=== PATIENT | male | born 1985 | race Caucasian/White ===

== ENCOUNTER 2025-02-22 15:20 | Outpatient (REF) | payer OTHER, SELFPAY ==
--- OUTSIDE RECORDS SUMMARY | 2025-02-22 17:28 | XMS_ITS | Data Portability ---
Author Organization [place] [facility] [place] Address [address] [place] [address] Care Team Providers Care Painting Contractor Name Role Phone CARLOS JACINTO Primary Care Provider CARLOS JACINTO Referring Provider [phone] Assessment Encounter Date Assessment Date Assessment LastModified by Organization Details LastModified Time 01/13/2025 01/13/2025 HPI: 39-year-old [id number] t man presenting with several year history of worsening right lateral elbow pain worsening over the past few months. 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 He had a similar issue back in 2012 but it recovered and has since returned. Continue ibuprofen that provides some relief rates pain 4 out of 10 he has pain with lifting gripping extending his elbow. Review of systems as noted in the HPI. Physical Exam: There is full active motion of the shoulders, elbows, and wrists bilaterally. The RIGHT elbow has tenderness to palpation over the lateral epicondyle. Pain over the mobile wad. Pain with resisted wrist extension with passive wrist flexion with the elbow in the extended position. No pain over the medial epicondyle, olecranon, radial head, or the DRUJ. No ulnar nerve subluxation. No ulnar nerve symptoms. No elbow instability. Neurovascular exam is intact. Skin is normal. IMPRESSION: with RIGHT lateral epicondylitis. PLAN: I discussed the treatment options with the patient includin. Living with the symptoms. 2. Continued non-operative management. 3. Surgical intervention. I had a nice discussion with the patient today. I reviewed the diagnosis and prognosis of lateral epicondylitis (AKA Tennis Elbow). I explained that the first-line treatment of lateral epicondylitis is appropriate physiotherapy including epicondylar muscle strengthening exercises, mobilization, stretching, and deep friction massage. I provided the patient with a handout demonstrate these exercises. I would ask that these exercises are done at least five times per day. I am recommending prescription strength NSAID therapy to decrease the pain and inflammation associated with this condition. A prescription was sent today for Meloxicam 15 mg daily for 30 days with 2 refills. If further anti-inflammatory medication is desired, I encouraged the patient to discuss this with their primary care provider. The patient was educated today on proper use of pain medications, including alternating anti inflammatories with antipyretics for synergistic pain relief as needed, in addition to medication limits and taking medications with food to avoid GI upset. the patient confirmed that they will discontinue taking the medication immediately if they experience any side effect and will inform the office as well. I am also recommending a prescription for outpatient physical or occupational therapy for this condition. This prescription was provided today. Lastly, I recommend that the patient trials a counterforce brace (bandit brace) for their elbow. Patient was prescribed a bandit elbow for the above diagnosis. The patient has weakness and/or instability of their elbow which requires stabilization from this semi-rigid/rigid orthosis to improve their function. If first-line treatment with physiotherapy, NSAIDs, and bracing fails, a PRP injection can be considered but does incur an out of pocket expense to the patient. I explained the process by which this is done. Current evidence and my personal experience dictates that corticosteroid injections should not be used for this diagnosis as significant rebound pain and worse 1 year outcomes are a known problem with corticosteroids for lateral epicondylitis. I also explained that the natural history studies show that most cases of lateral epicondylitis resolve within 1 to 2 years if left alone entirely. In my practice, I will only offer surgery if no improvement or if symptoms worsen after 6 months to 1 year of appropriate and dedicated nonoperative treatment course exhausting therapy, tennis elbow counterforce bracing, NSAIDs, and PRP injections. I did also explain that there is some uncertainty regarding the efficacy of the surgical procedures and that there are significant risks that must be considered with any surgery. The patient demonstrated excellent understanding of this and stated that they were in agreement with the treatment plan as outlined above. I also provided them with a packet of written information on the diagnosis, prognosis, and management of this pathology. The patient may return to see me in clinic in 3 months for repeat clinical evaluation. At the conclusion of the office visit, the patient verbally acknowledged that I answered all questions satisfactorily. Thank you for this consultation [email or web address] Not available 01/13/2025 11:34:34 Plan of Treatment Reminders Order Date Submit Date Provider Last Modified By Organization Details Last Modified Time Details Appointments FOLLOW UP 2025 09:00A M Tony Sauceda MD Not available Not available Not available Lab None recorded. Referral physical therapist referral - medial & lateral epicondyl itis 2-3x per week for 12 weeks epicondyl ar muscle strengthe delfino exercises , mobilizat ion, stretchin g, and deep friction massage. Modalitie s as indicated PHASE I: - Use modalitie s as needed to reduce pain, swelling, and inflammat ion (i.e., ice, heat /cold contrast, - phonophor esis, electrica l stimulati on, etc.). - Use a brace (i.e., cock up splint, counterfo rce brace) as needed. - Wrist flexion and extension stretches MEDIAL EPICONDYL ITIS - Strengthe delfino exercises : - Wrist extension - Supinatio n - Biceps curls - Triceps extension s - Radial deviation - Putty squeeze (wrist in neutral) NOTE: Avoid strengthe delfino the flexor mass muscle group during this initial phase to allow for healing at the medial epicondyl e. LATERAL EPICONDYL ITIS - Strengthe delfino exercises : - Wrist flexion - Pronation - Biceps curls - Triceps extension s - Ulnar deviation - Putty squeeze (in extension ) NOTE: Avoid strengthe delfino the extensor mass muscle group during this initial phase to allow for healing at the lateral epicondyl e. - Apply ice after each session PHASE II: - Continue use of modalitie s as needed. - Continue wrist flexion and extension stretchin g exercises . - Apply ice after each session. MEDIAL EPICONDYL ITIS - Add the following strengthe delfino exercises : - Putty finger flexion - Wrist flexion - Upper body ergometer LATERAL EPICONDYL ITIS - Add the following strengthe delfino exercises : - Putty finger extension - Wrist extension - Upper body ergometer PHASE III: - Progress to increased resistanc e during putty squeezes, - Add upper extremity strengthe delfino exercises as tolerated . - Add isokineti c training exercises as needed. - Progress with upper body ergometer as tolerated . - Gradually add sport or work related functiona l drills to prepare for return to former sports or activity. - Apply ice as needed. 2024 025 [email or web address] Not available 01/13/2025 11:40:10 Procedures None recorded. Surgeries None recorded. Imaging XR, elbow, 3 or more view 2024 025 [email or web address] [facility], [address], [place], [address], 01/16/2025 11:20:02 Medication Orders meloxicam 15 mg tablet 2024 025 [id number], [address], [place], [id number], 01/13/2025 11:34:42 Patient TargetsNo targets recorded. Patient Instructions Encounter Date Encounter Id Patient Instructions Last Modified By Organization Details Last Modified Time 01/13/2025 [id number] tennis elbow: exercises Not available 01/13/2025 11:34:35 Imaging: RIGHT elbow three view radiographs including AP, oblique, and lateral views were ordered by me, obtained today, reviewed with the patient, and independently interpreted by me as demonstrating a concentrically reduced ulnohumeral joint and radiocapitellar joint without any evidence of fracture, dislocation, arthritis, calcification, joint effusion, or other acute osseous abnormalities. Not available 01/13/2025 11:33:46 Reason for Referral Physical Therapist Referral for Lateral epicondylitis medial & lateral epicondylitis2-3x per week for 12 weeksepicondylar muscle strengthening exercises, mobilization, stretching, and deep friction massage.Modalities as indicatedPHASE I: - Use modalities as needed to reduce pain, swelling, and inflammation (i.e., ice, heat /cold contrast, - phonophoresis, electrical stimulation, etc.). - Use a brace (i.e., cock up splint, counterforce brace) as needed. - Wrist flexion and extension stretches MEDIAL EPICONDYLITIS - Strengthening exercises: - Wrist extension- Supination - Biceps curls- Triceps extensions - Radial deviation- Putty squeeze (wrist in neutral) NOTE: Avoid strengthening the flexor mass muscle group during this initial phase to allow for healing at the medial epicondyle. LATERAL EPICONDYLITIS - Strengthening exercises: - Wrist flexion- Pronation - Biceps curls- Triceps extensions - Ulnar deviation- Putty squeeze (in extension) NOTE: Avoid strengthening the extensor mass muscle group during this initial phase to allow for healing at the lateral epicondyle. - Apply ice after each session PHASE II: - Continue use of modalities as needed. - Continue wrist flexion and extension stretching exercises. - Apply ice after each session. MEDIAL EPICONDYLITIS - Add the following strengthening exercises: - Putty finger flexion - Wrist flexion - Upper body ergometer LATERAL EPICONDYLITIS - Add the following strengthening exercises: - Putty finger extension - Wrist extension - Upper body ergometer PHASE III: - Progress to increased resistance during putty squeezes, - Add upper extremity strengthening exercises as tolerated. - Add isokinetic training exercises as needed. - Progress with upper body ergometer as tolerated. - Gradually add sport or work related functional drills to prepare for return to former sports or activity. - Apply ice as needed. Referring Physician: Joe Sauceda, Orthopedic Surgery, Encounter Date: 01/13/2025 Problems Name Problem SNOMED Code Status Onset Date Resolution Date Notes Provider Name and Address Organization Details Recorded Time Lateral epicondylitis Active 2024 Joe Sauceda MD [address], [place], [address] , [place] [facility] 11:33:34 Lateral epicondylitis Active 2024 Joe Sauceda MD [address], [place], [address] , [place] [facility] 11:33:40 Essential hypertension 18926166 Active 2024 Kaylie dela cruz, [place] - [facility] 11:40:09 Problem Notes None recorded. Medical Equipment None Reported. Allergies Allergen ID Allergen Name Allergen Category Reaction Reaction Severity Criticality Documentation Date Start Date Code Code System Note Provider Name and Address Organization Details Recorded Time 189878 Augmentin medicatio n hallucina tions Not available Not available 01/13/2025 95063 2 RxNorm Not Available selvin - External Data Service - prod 10:48:58 Medications Name Sig Start Date Stop Date Status Note LastModified by Organization Details LastModified Time meloxicam 15 mg tablet Take 1 tablet every day by oral route. 2024 active Not Available Not Available Not Avai lable amlodipine 5 mg tablet TAKE 1 TABLET BY MOUTH EVERY DAY active Not Available Not Available No t Available amoxicillin 875 mg tablet TAKE 1 TABLET TWICE A DAY UNTIL FINISHED 01/13 completed Not Available Not Available Not Available amlodipine 10 mg tablet TAKE 1 TABLET BY MOUTH EVERY DAY active Not Available Not Available No t Available lisinopril 10 mg tablet TAKE 1 TABLET BY MOUTH EVERY DAY active Not Available Not Available No t Available escitalopra m 10 mg tablet TAKE 1 TABLET BY MOUTH EVERY DAY active Not Available Not Available No t Available Vitals Date Recorded Body height Body mass index (BMI) Body weight Provider Name and Address Organization Details Last Updated DateTime 01/13/2025 172.72 cm 35.7 kg/m2 581317.21 g Kaylie Chávez [place] [facility] 01/13/2025 11:39:43 Social History Question Answer Notes LastModified by Riiid Details LastModified Time Tobacco Smoking Status Former Smoker Kaylie Kyler dela cruz, [place] - [facility] 01/13/2025 11:43:18 Are You Currently In School? No [email or web address] Information not available 01/13/2025 Sex: Unknown Functional Status Question Answer Note LastModified by Riiid Details LastModified Time Do you use any illicit or recreational drugs? No [email or web address] Information not available 01/13/2025 Do you or have you ever used any other forms of tobacco or nicotine? Yes Information not available 01/13/2025 What is your level of alcohol consumption? Occasional [email or web address] Information not available 01/13/2025 Do you or have you ever used smokeless tobacco? Currently chews tobacco [email or web address] Information not available 01/13/2025 Are you currently employed? Yes Information not available 01/13/2025 Do you or have you ever used e-cigarettes or vape? Never used electronic cigarettes [email or web address] Information not available 01/13/2025 Mental Status None recorded. Family History Nothing Reported. Medical History No medical history recorded. Past Encounters Encounter ID Performer Location Encounter Start Date Encounter Closed Date Diagnosis/Indication Diagnosis SNOMED-CT Code Diagnosis ICD10 Code Diagnosis IMO Codes Diagnosis Note [id number] Joe Sauceda MD [facility] [address] [place] [address] 01/13/2025 10:45:34 01/13/2025 11:40:09 Pain of elbow region 02331947 M25.521 052005 Lateral epicondylitis 20 2867149 M77.10 [id number] Health Concerns Section Related Observation LastModified by Organization Detai ls LastModified Time None Recorded Concern Status LastModified by Organization Details LastModified Time None Recorded Advance Directives Directive None Recorded Payers Insurance Date Sequence Insurance Name Policy Number Policy Romeo Covered Member ID Romeo Member ID Guarantor Name 01/15/2025 1 [facility] [place] Hari Loyd [id number] Hari Loyd
--- OUTSIDE RECORDS SUMMARY | 2025-02-22 17:28 | XMS_ITS | Continuity of Care Document ---
Author Organization [place] - [facility] Address [address] [place] [address] Assessment Encounter Date Assessment Date Assessment LastModified by Organization Details LastModified Time 02/22/2025 02/22/2025 [address] [place] [address] (CLINICAL TRIAL HEAD) MDM MODERATE MUST MEET 2 OUT OF 3 ELEMENTS: PROBLEMS, DATA OR RISK ELEMENT 1: PROBLEMS ADDRESSED 1 OR MORE CHRONIC ILLNESS WITH EXACERBATION OR 2 OR MORE STABLE CHRONIC ILLNESSES OR 1 UNDIAGNOSED NEW PROBLEM OR 1 ACUTE ILLNESS W/SYMPTOMS OR 1 ACUTE COMPLICATED INJURY ELEMENT 2: DATA MUST MEET 1 OF 3 CATEGORIES CATEGORY 1: REVIEW OF PRIOR EXTERNAL NOTES, REVIEW OF RESULTS, ORDERING OF EACH TEST, ASSESSMENT REQUIRING INDEPENDENT HISTORIAN OR CATEGORY 2: INDEPENDENT INTERPRETATION OF TESTS BY ANOTHER PHYSICIAN OR SPECIALIST OR CATEGORY 3: DISCUSSION OF MGT OR TEST INTERPRETATION W/EXTERNAL PHYSICIAN OR SPECIALIST ELEMENT 3: RISK RISK OF COMPLICATIONS AND/OR MORBIDITY OR MORTALITY OF PATIENT MANAGEMENT PROVIDER MUST THOROUGHLY DOCUMENT EACH ELEMENT THAT IS COVERED Not available 02/22/2025 15:16:02 Plan of Treatment Reminders Order Date Submit Date Provider Last Modified By Organization Details Last Modified Time Details Appointments FOLLOW UP 15 2024 02:30P M DR JACINTO Not available Not available Not available FOLLOW UP 15 [address] JACINTO Not available Not available Not available Lab testoste julio, total, serum 2024 025 [facility], [address] [place] [address], [place], [address], 02/22/2025 15:19:44 Referral None recorded . Procedures None recorded . Surgeries None recorded . Imaging None recorded . Medication Orders None recorded . Patient TargetsNo targets recorded. Patient InstructionsNo instructions recorded. Reason for Referral None Reported. Problems Name Problem SNOMED Code Status Onset Date Resolution Date Notes Provider Name and Address Organization Details Recorded Time Essential hypertens ion 03085605 Active 2024 Jimmie Jacinto DO [address] [place] [address], [address], [facility] 5 15:50:25 Habitual snoring 381008359 Active 2024 Jimmie Jacinto DO [address] [place] [address], [address], [facility] 5 15:59:58 Lumbar sprain 174010296 Active 2024 Jimmie Jacinto DO [address] [place] [address], [address], [facility] 5 09:43:29 Obstructi ve sleep apnea syndrome 10430552 Active 2024 Jimmie Jacinto DO [address] [place] [address], [address], [facility] 5 09:50:32 Pain in thoracic spine 307227688 Active 2024 EDY AQUINO [address] [place] [address], [address], [facility] 5 09:31:01 Chronic low back pain 402980230 Active 2024 Jimmie Jacinto DO [address] [place] [address], [address], [facility] 5 10:16:32 Right lateral elbow tendinopa thy 562553893419 107 Active 2024 Jimmie Jacinto DO [address] [place] [address], [address], [facility] 5 10:20:59 Spinal stenosis of thoracic region 98644487 Active 2024 Jimmie Jacinto DO [address] [place] [address], [address], [facility] 22:37:18 Degenerat kali thoracic spinal stenosis 486746035 Active 2024 Jimmie Jacinto, DO [address] [place], [address], [facility] 22:37:23 Anxiety 58715721 Active 2024 Jimmie Jacinto, DO [address] [place], [address], [facility] 14:19:09 Fatigue 57977181 Active 2024 Jimmie Jacinto, DO [address] [place], [address], [facility] 15:17:21 Problem Notes None recorded. Medical Equipment None Reported. Allergies Allergen ID Allergen Name Allergen Category Reaction Reaction Severity Criticality Documentation Date Start Date Code Code System Note Provider Name and Address Organization Details Recorded Time Product containin g penicilli n (product) medicatio n Not available Not available Not available 02/22/20252004 63955 8001 SNOMED type of react ion is unkno wn Not Available selvin - External Data Service - prod 03:09:14 8925 Augmentin medicatio n hallucina tions Not available Not available 06/05/2024 61161 2 RxNorm Jimmie Jacinto, DO [address] [place], [address], [facility] 15:19:13 Medications Name Sig Start Date Stop Date Status Note LastModified by Organization Details LastModified Time meloxicam 15 mg tablet TAKE 1 TABLET BY MOUTH EVERY DAY 02/22 completed Not Available Not Available Not Available amlodipine 5 mg tablet TAKE 1 TABLET BY MOUTH EVERY DAY 12/28 completed Not Available Not Available Not Available amoxicillin 875 mg tablet TAKE 1 TABLET TWICE A DAY UNTIL FINISHED 07/15 completed Not Available Not Available Not Available amlodipine 10 mg tablet TAKE 1 TABLET BY MOUTH EVERY DAY active Not Available Not Available No t Available lisinopril 10 mg tablet TAKE 1 TABLET BY MOUTH EVERY DAY 10/07 completed Not Available Not Available Not Available escitalopra m 10 mg tablet TAKE 1 TABLET BY MOUTH EVERY DAY active Not Available Not Available No t Available Vitals Date Recorded Body height Body mass index (BMI) Body weight Heart rate Oxygen saturation Systolic And Diastolic Provider Name and Address Organization Details Last Updated DateTime 172.72 cm 38.5 kg/m2 264622. 87 g 106 /min 97 % 160/90 mm[Hg] Umm Mc [facility] 14:41:25 Social History Question Answer Notes LastModified by Organizat ion Details LastModified Time Tobacco Smoking Status Former Smoker vape EDE dela cruz [facility] 07/15/2024 09:22:29 What Was The Date Of Your Most Recent Tobacco Screening? 02/22/2025 [email or web address] Information not available 02/22/2025 Sex: Unknown Functional Status Question Answer Note LastModified by Organization D etails LastModified Time Do you or have you ever used any other forms of tobacco or nicotine? No [email or web address] Information not available 12/28/2024 Mental Status None recorded. Family History Nothing Reported. Medical History No medical history recorded. Past Encounters Encounter ID Performer Location Encounter Start Date Encounter Closed Date Diagnosis/Indication Diagnosis SNOMED-CT Code Diagnosis ICD10 Code Diagnosis IMO Codes Diagnosis Note [id number] Jimmie Jacinto [facility] [address],[place] [address] 02/22/2025 14:26:41 02/22/2025 15:30:25 Depression screening 213088521 Z13.31 neg Essential hypertension 21802662 I10 amlodipine increase to 10mg but will follow Fatigue 82231550 R53.82 386050 Health Concerns Section Related Observation LastModified by Organization Detai ls LastModified Time None Recorded Concern Status LastModified by Organization Details LastModified Time None Recorded Payers Encounter Date Sequence Insurance Name Policy Number Policy Romeo Covered Member ID Romeo Member ID Guarantor Name 02/22/2025 1 [facility] [place] Hari Loyd [id number] Hari Loyd Notes Date Note Type Note Provider Name a nd Address Organization Details Recorded Time 02/22/2025 text/html ROS as noted in the HPI here for rechk and is doing ok overallrelates has had some side effects on initial dosingrelates that he has had some issues but these ave slowly resolved over timestates feels much less anxious but is feeling more depressed Jimmie Jacinto, DO [address], [place], [address], [facility] 02/22/2025 15:19:08
--- OUTSIDE RECORDS SUMMARY | 2025-02-22 17:28 | XMS_ITS | Continuity of Care Document ---
Author Organization [place] [facility] Trey NewellTabathaFABIANO [place] Address [address] [address] Care Team Providers Care Patient Scheduling Manager Name Role Phone CARLOS JACINTO Primary Care Provider [phone] CARLOS JACINTO Referring Provider [phone] Assessment Encounter Date Assessment Date Assessment LastModified by Organization Details LastModified Time 01/13/2025 01/13/2025 HPI: 39-year-old skwvo-bakm-lzxbltl t man presenting with several year history of worsening right lateral elbow pain worsening over the past few months. 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 He had a [...] more view 2024 025 [email or web address] [facility], [address], [place], [address], 01/16/2025 11:20:02 Medication Orders meloxicam 15 mg tablet 2024 [id number], [address] [place], [place], [id number], 01/13/2025 11:34:42 Patient TargetsNo targets recorded. Patient Instructions Encounter Date Encounter Id Patient Instructions Last Modified By Organization Details Last Modified Time 01/13/2025 [id number] tennis elbow: exercises Not available 01/13/2025 11:34:35 [...] Joe Sauceda MD [address], [place], [address] , [place] [facility] 5 11:33:34 Lateral epicondylitis Active 2024 Joe Sauceda MD [address], [place], [address] , [place] [facility] 5 11:33:40 Essential hypertension 99524115 Active 2024 Kaylie dela cruz, [place] [facility] 5 11:40:09 Problem Notes None recorded. Medical Equipment None Reported. Allergies Allergen ID Allergen Name Allergen Category Reaction Reaction Severity Criticality Documentation Date Start Date Code Code System Note Provider Name and Address Organization Details Recorded Time 575129 Augmentin medicatio n hallucina tions Not available Not available 01/13/2025 98153 2 RxNorm Not Available selvin - External [...] Updated DateTime 01/13/2025 172.72 cm 35.7 kg/m2 407400.21 g Kaylie Chávez [place] - [facility] 01/13/2025 11:39:43 Social History Question Answer Notes LastModified by [employer] Details LastModified Time Tobacco Smoking Status Former Smoker Kaylie Kyler dela cruz, [place] [facility] 01/13/2025 11:43:18 Are You Currently In School? No [email or web address] Information not available 01/13/2025 Sex: Unknown Functional Status Question Answer Note LastModified by [employer] Details LastModified Time Do you use any illicit or recreational drugs? No [email or web address] Information not available 01/13/2025 Do you or have you ever used any other forms of tobacco or nicotine? Yes Information not available 01/13/2025 What is your level of alcohol consumption? Occasional [email or web address] Information not available 01/13/2025 Do you or have you ever used smokeless tobacco? Currently chews tobacco [email or web address] Information not available 01/13/2025 Are you currently employed? Yes Information not available 01/13/2025 Do you or have you ever used e-cigarettes or vape? Never used electronic cigarettes [email or web address] Information not available 01/13/2025 Mental Status None recorded. Family History Nothing Reported. Medical History No medical history recorded. Past Encounters Encounter ID Performer Location Encounter Start Date Encounter Closed Date Diagnosis/Indication Diagnosis SNOMED-CT Code Diagnosis ICD10 Code Diagnosis IMO Codes Diagnosis Note [id number] Joe Sauceda MD [facility] [address] [facility] [address] [place] [address] 01/13/2025 10:45:34 01/13/2025 11:40:09 Pain of elbow region 21085574 M25.521 915894 Lateral epicondylitis 20 7395152 M77.10 [id number] Health Concerns Section Related Observation LastModified by Organization Detai ls LastModified Time None Recorded Concern Status LastModified by Organization Details LastModified Time None Recorded Payers Encounter Date Sequence Insurance Name Policy Number Policy Romeo Covered Member ID Romeo Member ID Guarantor Name 01/13/2025 1 [facility] Hari Loyd [id number] Hari Loyd
--- OUTSIDE RECORDS SUMMARY | 2025-02-22 17:28 | XMS_ITS ---
Author Name [facility] Organization Unknown Allergies Allergen Reaction Severity Comment Documented Date Source Statu s AUGMENTIN HALLUCINATIONS ENS_AONECT Problems Problem Status Onset Date Problem Type Date of Resoluti on Source Lateral epicondylitis active 2025-01-13 ProblemAct ENS_AONECT Encounters Encounter Type Encounter Reason Primary Diagnosis Location Date Ambulatory [facility] 01/14/2025 [facility] 01/13/2025 [facility] 01/13/2025 [facility] 12/29/2024
--- OUTSIDE RECORDS SUMMARY | 2025-02-22 17:29 | XMS_ITS | Data Portability ---
Author Organization [facility] Telehealth Patient Home Address [address] [place] [address] Assessment Encounter Date Assessment Date Assessment LastModified by Organization Details LastModified Time 06/05/2024 06/05/2024 [id number] [place] [address] (DIGITAL COMPOSER) [facility] MODERATE MUST MEET 2 OUT OF 3 [...] EACH ELEMENT THAT IS COVERED Not available 06/05/2024 15:50:07 07/15/2024 07/15/2024 [address] [place] [address] (DIGITAL COMPOSER) [facility] MODERATE MUST MEET 2 OUT OF 3 [...] EACH ELEMENT THAT IS COVERED Not available 07/15/2024 09:52:23 10/07/2024 10/07/2024 [id number] [place] [address] (DIGITAL COMPOSER) [facility] MODERATE MUST MEET 2 OUT OF [...] EACH ELEMENT THAT IS COVERED Not available 10/07/2024 10:16:50 12/28/2024 12/28/2024 [id number] [place] [address] (DIGITAL COMPOSER) [facility] MODERATE MUST MEET 2 OUT OF [...] EACH ELEMENT THAT IS COVERED Not available 12/28/2024 14:25:17 02/22/2025 02/22/2025 [id number] [place] [address] (DIGITAL COMPOSER) [facility] MODERATE MUST MEET 2 OUT OF [...] Not available Not available Not available Lab testoster one, total, serum 2024 025 [facility], [address] [place] [address], [place], [address], 02/22/2025 15:19:44 CMP, serum or plasma 2024 025 [facility], [address] [place], [address], 06/05/2024 15:57:34 lipid panel, serum 2024 025 [facility], [address] [place], [address], 06/05/2024 15:57:34 CBC w/ auto diff 2024 025 [facility], [address] [facility], [place], [address], 06/09/2024 03:14:33 Referral orthopedi c surgeon referral - progressi ve and chronic epicondyl itis 2024 025 [facility], [address] [place], [address], 01/08/2025 08:19:16 Procedures None recorded. Surgeries None recorded. Imaging MRI, lumbar spine, w/o contrast 2024 025 [facility], [address] [place], [address], 10/16/2024 08:57:57 XR, lumbosacr al spine, 2 or 3 view 2024 025 [facility] ([facility]iology), [address], [place], [address], 07/15/2024 13:16:47 home sleep study 2024 025 [facility], [address], [address], [place], [address], 06/16/2024 10:38:55 Medication Orders amlodipin e 10 mg tablet 2024 025 [facility][id number], [address] [place], [place], [id number], 12/28/2024 14:18:09 escitalop angelita 10 mg tablet 2024 025 [facility] #[id number], [address] [place], [place], [id number], 12/28/2024 14:27:23 amlodipin e 5 mg tablet 2024 025 [facility] #[id number], [address] [place], [place], [id number], 12/28/2024 14:07:26 lisinopri l 10 mg tablet 2024 025 [facility] #28614, [address] [place], [place], [id number], 10/07/2024 10:09:35 Patient TargetsNo targets recorded. Patient Instructions Encounter Date Encounter Id Patient Instructions Last Modified By Organization Details Last Modified Time 06/05/2024 [id number] high blood pressure: care instructions Not available 06/05/2024 15:56:07 learning about high blood pressure Not available 06/05/2024 15:56:07 07/15/2024 [id number] sleep apnea: car e instructions Not available 07/15/2024 09:52:24 back strain: car e instructions Not available 07/15/2024 09:56:06 10/07/2024 [id number] sleep apnea: car e instructions Not available 10/07/2024 10:17:10 Reason for Referral Orthopedic Surgeon Referral for Right lateral elbow tendinopathy progressive and chronic epicondylitis Referring Physician: Jimmie Jacinto, Internal Medicine, Encounter Date: 12/28/2024 Results Created Date Observation Date Name Description Value Unit Range Abnormal Flag Note LastModifiedBy Organization Detail LastModifiedTime 07/16/1907/15/2024 XR, lumbo sacra l spine , 2 or 3 view No observ ation record ed. [email or web address] Not Available 07/21 08:34:32 07/23/1907/22/2024 XR, thora cic spine , 2 view No observ ation record ed. [email or web address] Not Available 07/28 08:53:08 11/06/1911/05/2024 MRI, lumba r spine , w/o contr ast No observ ation record ed. [address], [address], 11/10/2024 14:18:13 11/25/19 25 11/23/2024 MRI, thora cic spine , w/o contr ast No observ ation record ed. [email or web address] [address], [address], 11/27/2024 13:02:17 Result Notes None recorded. Problems Name Problem SNOMED Code Status Onset Date Resolution Date Notes Provider Name and Address Organization Details Recorded Time Essential hypertens ion 50209537 Active 2024 Jimmie Jacinto DO [address] [place] [address], [address], [facility] 5 15:50:25 Habitual snoring 968972492 Active 2024 Jimmie Jacinto DO [address] [place] [address], [address], [facility] 15:59:58 Lumbar sprain 300911819 Active 2024 Jimmie Jacinto DO [address] [place] [address], [address], [facility] 09:43:29 Obstructi ve sleep apnea syndrome 97370408 Active 2024 Jimmie Jacinto DO [address] [place] [address], [address], [facility] 5 09:50:32 Pain in thoracic spine 029309650 Active 2024 EDY AQUINO [address] [place] [address], [address], [facility] 09:31:01 Chronic low back pain 461842255 Active 2024 Jimmie Jacinto DO [address] [place] [address], [address], [facility] 5 10:16:32 Right lateral elbow tendinopa thy 986804777655 107 Active 2024 Jimmie Jacinto DO [address] [place] [address], [address], [facility] 5 10:20:59 Spinal stenosis of thoracic region 26568073 Active 2024 Jimmie Jacinto DO [address] [place] [address], [address], [facility] 22:37:18 Degenerat kali thoracic spinal stenosis 698630745 Active 2024 Jimmie Jacinto DO [address] [place] [address], [address], [facility] 22:37:23 Anxiety 56149367 Active 2024 Jimmie Jacinto DO [address] [place] [address], [address], [facility] 5 14:19:09 Fatigue 93532991 Active 2024 Jimmie Jacinto DO [address] [place], [address], [facility] 15:17:21 Problem Notes None recorded. Medical Equipment None Reported. Allergies Allergen ID Allergen Name Allergen Category Reaction Reaction Severity Criticality Documentation Date Start Date Code Code System Note Provider Name and Address Organization Details Recorded Time 20504 Product containin g penicilli n (product) medicatio n Not available Not available Not available 02/22/20252004 34574 8001 SNOMED type of react ion is unkno wn Not Available selvin - External Data Service - prod 03:09:14 8925 Augmentin medicatio n hallucina tions Not available Not available 06/05/2024 19678 2 RxNorm Jimmie Jacinto, DO [address] [place], [address], [facility] Internal [facility] 15:19:13 Medications Name Sig Start Date [...] Organization Details Last Updated DateTime 172.72 cm 36 kg/m2 426197. 39 g 113 /min 95 % 182/118 mm[Hg] Jimmie Jacinto, DO [address] [place], [address], [facility] 5 15:18:33 Date Recorded Body height Body mass index (BMI) Body weight Heart rate Oxygen saturation Systolic And Diastolic Provider Name and Address Organization Details Last Updated DateTime 5 172.72 cm 36.6 kg/m2 852766. 76 g 100 /min 98 % 134/84 mm[Hg] EDE PINEDO [facility] Internal [facility] 09:26:00 Date Recorded Body height Body mass index (BMI) Body weight Oxygen saturation Heart rate Systolic And Diastolic Provider Name and Address Organization Details Last Updated DateTime 5 172.72 cm 36.5 kg/m2 311859. 89 g 96 % 100 /min 142/86 mm[Hg] EDE PINEDO [facility] Internal [facility] 09:56:20 Date Recorded Body height Body mass index (BMI) Body weight Heart rate Oxygen saturation Systolic And Diastolic Provider Name and Address Organization Details Last Updated DateTime 5 172.72 cm 36.5 kg/m2 222516. 17 g 97 /min 98 % 120/68 mm[Hg] Maureen Vergara [facility] 13:47:42 Date Recorded Body height Body mass index (BMI) Body weight Heart rate Oxygen saturation Systolic And Diastolic Provider Name and Address Organization Details Last Updated DateTime 5 172.72 cm 38.5 kg/m2 121979. 87 g 106 /min 97 % 160/90 mm[Hg] Umm Mc [facility] 14:41:25 Social History Question Answer Notes LastModified by Organizat ion Details LastModified Time Tobacco Smoking Status Former [facility] 07/15/2024 09:22:29 What Was The Date Of Your Most Recent Tobacco Screening? 02/22/2025 [email or web address] Information not available 02/22/2025 Sex: Unknown Functional Status Question Answer Note LastModified by Organization D etails LastModified Time Do you or have you ever used any other forms of tobacco or nicotine? No [email or web address] Information not available 12/28/2024 Mental Status None recorded. Family History Nothing Reported. Medical History No medical history recorded. Past Encounters Encounter ID Performer Location Encounter Start Date Encounter Closed Date Diagnosis/Indication Diagnosis SNOMED-CT Code Diagnosis ICD10 Code Diagnosis IMO Codes Diagnosis Note [id number] Jimmie Berry Loki [facility] [address] [facility] [address] [address] 06/05/2024 14:46:28 06/05/2024 16:04:48 Depression screening 910428494 Z13.31 neg Essential hypertension 48863192 I10 we will be starting him on lisinopril Habitual snoring 0978671 00 R06.83 [id number] Jimmie Berry Loki [facility] [address] [facility] [address] [address] 07/15/2024 09:16:10 07/15/2024 10:38:07 Depression screening 487678340 Z13.31 neg Essential hypertension 69114259 I10 on lisinopril 10 adn doing much better Obstructiv e sleep apnea syndrome 04531045 G47.33 612959 awaiting sleep eval insurance is denying Lumbar sprain 759298192 S33.5XXD 3247577 has had PT in past without relief will get xr and then poss MRI [id number] Jimmie Berry Loki [facility] [address] [facility] [facility] [place] [address] 10/07/2024 09:51:49 10/07/2024 14:32:51 Depression screening 576934218 Z13.31 neg Essential hypertension 65303141 I10 amlodipine trial stop lisinopril as he has been feeling down since on Obstructiv e sleep apnea syndrome 45763490 G47.33 867480 awaiting sleep eval i Chronic low back pain 27 8142873 M54.41 G89.29 32049861 Right late ral elbow tendinopathy 7714945954 16284 M77.11 [id number] Jimmie Jacinto [facility] [address] [facility] [address] [address] 12/28/2024 13:42:37 12/28/2024 15:50:29 Depression screening 998413472 Z13.31 neg Essential hypertension 86726053 I10 amlodipine increase to 10mg Right late ral elbow tendinopathy 4056098139 69136 M77.11 4114534 chronic and getting worse will refer to ortho as this has become a chronic prob will likely need annie inj hoepefully not surg Anxiety 57274545 F41.9 [id number] Jimmie Jacinto DO [facility] [address] [facility],[place] [address] 02/22/2025 14:26:41 02/22/2025 15:30:25 Depression screening 983992252 Z13.31 neg Essential hypertension 73045266 I10 amlodipine increase to 10mg but will follow Fatigue 10668622 R53.82 650193 Health Concerns Section Related Observation LastModified by Organization Detai ls LastModified Time None Recorded Concern Status LastModified by Organization Details LastModified Time None Recorded Advance Directives Directive None Recorded Payers Insurance Date Sequence Insurance Name Policy Number Policy Romeo Covered Member ID Romeo Member ID Guarantor Name 12/29/2024 1 [facility] () Hari Loyd [id number] Hari Loyd Notes Date Note Type Note Provider Name and Address Organization Details Recorded Time 5 text/htm l ROS as noted in the HPI here for intitial visitreferred due to high bp noted at basefam hx of htn dm lupus heart ds does hav e bad snoring has for a long time Jimmie Jamal Jacinto DO [address] [place] [address], [address], [facility] 06/05/2024 16:01:49 5 text/htm l Care Management - HypertensionReported by PatientHPIFor self care, patient reportsnot under emotional stress. For severity, patient reportssymptoms are improvinganddoes not interfere with daily activities. For associated symptoms, patient reportsno dizziness,no lightheadedness,no chest pain,no shortness of breath,no palpitations,no edema,no calf muscle cramps,no blurred vision,no confusion,no headaches, andno fatigue.ROS as noted in the HPI here for rechk and is doing okbp is 140's /90 's consistently 150's Jimmie Jacinto DO [address] [place], [address], [facility] 07/15/2024 09:56:40 5 text/htm l Care Management - HypertensionReported by PatientHPIFor self care, patient reportsnot under emotional stress. For severity, patient reportssymptoms are improvinganddoes not interfere with daily activities. For associated symptoms, patient reportsno dizziness,no lightheadedness,no chest pain,no shortness of breath,no palpitations,no edema,no calf muscle cramps,no blurred vision,no confusion,no headaches, andno fatigue.relates having a great deal of stress as well and having episodes of depression monika is struggling with this and we believe this has been worsened by prob sleep apnea and sleep deprivat and also poss the lisinoprilstill having his low back pain and having discomfort down right sideROS as noted in the HPI here for rechk finally has been scheduled for the sleep study still having pain in the low back and is having pain down both legs injured his right elbow at work yesterday Jimmie BlakeDi Jacinto DO [address] [place] [address], [place], [address], [facility] 10/07/2024 10:26:41 5 text/htm l Care Management - HypertensionReported by PatientHPIFor self care, patient reportsnot under emotional stress. For severity, patient reportssymptoms are improvinganddoes not interfere with daily activities. For associated symptoms, patient reportsno dizziness,no lightheadedness,no chest pain,no shortness of breath,no palpitations,no edema,no calf muscle cramps,no blurred vision,no confusion,no headaches, andno fatigue.ROS as noted in the HPI long detailed discussion re mri resulthas evid of thoracic spinal stenosis and neural foraminal impingementrelates that he is still having a great deal of issue with anxiety and feeling down about this Jimmie LozanoDi Jacinto DO [address] [place], [address], [facility] 12/28/2024 14:29:16 5 text/htm l ROS as noted in the HPI here for rechk and is doing ok overallrelates has had some side effects on initial dosingrelates that he has had some issues but these ave slowly resolved over timestates feels much less anxious but is feeling more depressed Jimmie Jacinto, DO [address] [facility], [place], [address], [facility] 02/22/2025 15:19:08
== END 2025-02-22 15:21 | disposition home or self-care (01) ==
LOC: HO.MANLDS 15:20
PROVIDERS: Visit Provider Internal Medicine
DX: R53.82 Chronic fatigue, unspecified (principal)
CPT/HCPCS: 36415; 84403